=== PATIENT | female | born 1990 | race Caucasian/White ===

== ENCOUNTER 2022-03-06 16:55 | Emergency (ER) | payer BC, SELFPAY ==
[2022-03-06 17:02] VITALS: BP 109/68; PULSE 113; RESP 16; TEMP 37.2; O2SAT 98
--- NOTE | 2022-03-06 18:38 | ED.URI ---
HPI - URI/Sore Throat General Chief Complaint: Upper Respiratory Infection Stated Complaint: sore throat x 2 weeks Time Seen by Provider: 03/06/22 17:56 History of Present Illness HPI Narrative: Patient is a 31-year-old female here for evaluation of sinus congestion/rhinorrhea for the past 2 weeks. Patient states she had an initial improvement in her congestion, but her symptoms returned and worsened about 3 days ago. Her sinus drainage is green, and for the past 3 days she additional notes intermittent fevers, diffuse body aches, sore throat. Has been using Tylenol and adbb-zur-yoldfsc sinus spray with transient relief of her symptoms. Negative COVID test at home 3 days ago. She is vaccinated against COVID but not flu. Has a child at home that attends daycare, although the child is not symptomatic. She additionally reporting urinary frequency and urgency, but no dysuria or hematuria. Does endorse some back pain, not localized to one side, and states that it is mostly diffuse body aches that she has been troubled by. Denies trismus, syncope, headache, visual changes. Related Data Allergies Allergy/AdvReac Type Severity Reaction Status Date / Time cefaclor [From [facility]] AdvReac Hives Verified 03/06/22 17:54 sulfamethoxazole AdvReac Hives Verified 03/06/22 17:55 [From Septra] trimethoprim [From Septra] AdvReac Hives Verified 03/06/22 17:55 Review of Systems Review of Systems: Gen.: Reports fevers, chills, body aches. Eyes: Denies eye pain or visual change ENT: Reports congestion sore throat and rhinorrhea. Respiratory: Denies shortness of breath or cough CV: Denies chest pain or palpitations GI: Denies abdominal pain nausea, emesis or diarrhea : Reports urinary frequency. Denies burning, urgency,or hematuria Musculoskeletal: Denies back pain or muscle pain Neuro: Denies numbness, tingling, weakness or focal weakness Skin: Denies rash Except as documented, all other systems reviewed and negative All systems reviewed & are unremarkable except as noted in HPI and below Exam Narrative: APPEARANCE: Well appearing, no pain in distress, well-nourished. Head: Sinus tenderness over the maxillary area. Normocephalic and atraumatic. EYES: PERRLA/EOMI, conjunctivae clear NOSE: Purulent nasal drainage. EARS: External ear normal in appearance. TMs clear bilaterally THROAT: Tonsils are 2+ bilaterally and injected. No uvular deviation or LOCKS TENDER visualized. No tonsillar exudates. No trismus. NECK: Supple. Tender, mobile anterior cervical lymphadenopathy on the right. RESPIRATORY: Airway patent, respirations nonlabored. Clear to auscultation bilaterally, no rales, rhonchi, wheezing. CARDIOVASCULAR: Regular rate and rhythm without murmurs, rubs, or gallops. ABDOMINAL: Normoactive bowel sounds. Soft, nontender, nondistended. No rebound tenderness or guarding. MUSCULOSKELETAL: No CVA tenderness. Extremities are warm and well-perfused. Moves all extremities well. No edema. NEURO: Normal speech. No focal neurologic deficits. SKIN: Skin is warm and dry. No rashes. PSYCHIATRIC: Normal affect/mood. Course Vital Signs Vital signs: Vital Signs Temperature 98.9 F 03/06/22 17:02 Pulse Rate 113 H 03/06/22 17:02 Respiratory Rate 16 03/06/22 17:02 Blood Pressure 109/68 03/06/22 17:02 Pulse Oximetry 98 03/06/22 17:02 Temperature 98.8 F 03/06/22 20:34 Pulse Rate 84 03/06/22 20:34 Respiratory Rate 16 03/06/22 20:34 Blood Pressure 109/68 03/06/22 17:02 Pulse Oximetry 98 03/06/22 20:34 MDM - URI/Sore Throat MDM Narrative Medical decision making narrative: 31-year-old female here with sinus congestion and rhinorrhea in addition to fevers and body aches. Additionally complaining of urinary symptoms. Afebrile here, posterior oropharynx is injected and patient has maxillary sinus tenderness on exam. Strep test positive, UA suspicious for UTI. COVID/flu negative. Will cover with Augmentin for suspected sinusitis
[2022-03-06 19:24] LABS: Add Urine Microscopic? YES; Appearance Urine Cloudy (Clear); Bilirubin Urine Negative (Negative); Blood Urine 1+ (Negative); Color Urine Yellow (Yellow); Glucose Urine UA Negative (Negative); Ketones Urine Negative (Negative); Leukocyte Esterase Ur 2+ LEU/UL (Negative); Nitrate Urine Negative (Negative); Protein Urine Negative (Negative); Specific Grav Ur 1.012 (1.001-1.035); Squamous Epithelial Cell Urine Many /hpf (Few); Urobilinogen Urine Negative mg/dL (<2.0)
[2022-03-06 20:06] LABS: Influenza A QL RT-PCR Negative (Negative); Influenza B QL RT-PCR Negative (Negative); SARS-CoV-2 RNA PCR Negative
[2022-03-06] MEDS: ACETAMINOPHEN 325 MG TABLET 650 MG PO (20:30)
[2022-03-06] MEDS: IBUPROFEN 600 MG TABLET PO (20:30)
[2022-03-06] MEDS: AMOXICILLIN/CLAVULANATE K 875-125 MG TAB 1 TABLET PO (20:31)
[2022-03-06 20:34] VITALS: PULSE 84; RESP 16; TEMP 37.1; O2SAT 98
== END 2022-03-06 20:35 | disposition home or self-care (01) ==
PROVIDERS: Physician Assistant; Emergency Provider Emergency Medicine
DX: J32.9 Chronic sinusitis, unspecified (principal); N39.0 Urinary tract infection, site not specified; J02.0 Streptococcal pharyngitis; Z20.822 Contact with and (suspected) exposure to COVID-19
CPT/HCPCS: 81001; 87502; 87880; 99283; A9270; C9803; U0003; U0005

== ENCOUNTER 2022-06-21 19:10 | Emergency (ER) | payer BC, SELFPAY ==
[2022-06-21 19:23] VITALS: BP 108/69; PULSE 80; RESP 18; TEMP 36.6; O2SAT 99
--- NOTE | 2022-06-21 19:37 | ED.SKABFB ---
HPI - Skin/Abscess/Foreign Bdy General Chief complaint: Skin/Abscess/Foreign Body Stated complaint: rash Time Seen by Provider: 06/21/22 19:31 Source: patient Mode of arrival: ambulatory Limitations: no limitations History of Present Illness HPI narrative: Patient presents today complaining of 5-day history of rash to her trunk that is pruritic. She has been taking Zyrtec and applying hydrocortisone and calamine lotion without much relief. She denies any household changes, new foods or animal exposures, plant exposures, new medications. The day before her onset of symptoms, she did try on her wedding dress for the first time. Denies any shortness of breath, facial swelling, difficulty swallowing. Related Data Home Medications Medication Instructions Recorded Confirmed escitalopram oxalate 10 mg tablet 10 mg PO DAILY 03/18/22 06/21/22 (Lexapro) Allergies Allergy/AdvReac Type Severity Reaction Status Date / Time cefaclor [From Ceclor] AdvReac Hives Verified 06/21/22 19:31 sulfamethoxazole AdvReac Hives Verified 06/21/22 19:31 [From Septra] trimethoprim [From Septra] AdvReac Hives Verified 06/21/22 19:31 Review of Systems Review of Systems: CONSTITUTIONAL: Denies body aches, fever, chills, or sweats. EYES: Denies visual changes, redness, or discharge. ENT: Denies rhinorrhea, congestion, sore throat, or otalgia. CARDIOVASCULAR: Denies chest pain, palpitations, or edema. RESPIRATORY: Denies cough or dyspnea. GASTROINTESTINAL: Denies abdominal pain, nausea, vomiting, or diarrhea. GENITOURINARY: Denies dysuria or hematuria. SKIN: + Pruritic rash MUSCULOSKELETAL: Denies back pain, joint pain, or myalgia. NEUROLOGIC: Denies headache, numbness, tingling, or weakness. PSYCH: Denies depression or anxiety. 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 Please see nursing chart for further information. There is no relevant family history pertinent to the presenting complaint Exam Narrative: GENERAL: Well-appearing, well-nourished, and in no acute distress. HEAD: Normocephalic, atraumatic. EYES: EOMI. No redness or drainage. Conjunctivae normal. ENT: Mucous membranes pink and moist. NECK: Normal AROM. CHEST: No respiratory distress. EXTREMITIES: Erythematous maculopapular rash spread across the right abdomen, right flank, left flank and large patches. Large patch to the midline mid back as well, and left antecubital fossa. No drainage or induration. SKIN: Warm, dry, no rash. Capillary refill normal. Normal skin turgor. NEURO: No focal deficits. Alert and oriented x3. Gait steady. PSYCH: Normal affect. No signs of depression or anxiety. Course Course Level of Care: Express Care Visit Vital Signs Vital signs: Vital Signs Temperature 97.8 F 06/21/22 19:23 Pulse Rate 80 06/21/22 19:23 Respiratory Rate 18 06/21/22 19:23 Blood Pressure 108/69 06/21/22 19:23 Pulse Oximetry 99 06/21/22 19:23 Oxygen Delivery Room Air 06/21/22 19:23 Temperature 97.8 F 06/21/22 19:23 Pulse Rate 80 06/21/22 19:23 Respiratory Rate 18 06/21/22 19:23 Blood Pressure 108/
== END 2022-06-21 19:47 | disposition home or self-care (01) ==
PROVIDERS: Emergency Provider Nurse Practitioner
DX: L25.9 Unspecified contact dermatitis, unspecified cause (principal); Z87.820 Personal history of traumatic brain injury; Z96.21 Cochlear implant status
CPT/HCPCS: 99213; G0463

== ENCOUNTER 2022-10-06 16:17 | Emergency (ER) | payer BC, SELFPAY ==
--- NOTE | 2022-10-06 16:24 | ED.URI ---
HPI - URI/Sore Throat General Chief Complaint: Upper Respiratory Infection Stated Complaint: cough,sneezing Time Seen by Provider: 10/06/22 16:24 Source: patient Mode of arrival: ambulatory Limitations: no limitations History of Present Illness HPI Narrative: Tyler is a 32-year-old female patient presenting to the clinic today with complaints of sneezing, sinus pressure, sinus congestion, and coughing x4 weeks. She reports no known fever or chills. No known exposure to anybody with COVID, flu, or strep MD elicited complaint: cough and nasal congestion Related Data Home Medications Medication Instructions Recorded Confirmed escitalopram oxalate 10 mg tablet 10 mg PO DAILY 03/18/22 06/21/22 (Lexapro) norethindrone 1 mg-ethinyl tablet 10/06/22 10/06/22 estradiol 20 mcg (21)-iron 75 mg (7) tablet (Blisovi Fe 11/26 (28)) Allergies Allergy/AdvReac Type Severity Reaction Status Date / Time cefaclor [From [facility]] AdvReac Hives Verified 06/21/22 19:31 sulfamethoxazole AdvReac Hives Verified 06/21/22 19:31 [From Septra] trimethoprim [From Julra] AdvReac Hives Verified 06/21/22 19:31 Review of Systems Review of Systems: Pertinent positives per HPI. Patient denies any fever, chills, rash,visual changes, dizziness, sore throat, shortness of breath, chest pain, palpitations, nausea, vomiting, diarrhea, constipation, abdominal pain, or any urinary issues. 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 There is no relevant family history pertinent to the patient complaint. Exam Narrative: General: Well-developed, well nourished, in no apparent distress Head: Normocephalic, atraumatic Eyes: Pupils equally round and reactive to light bilaterally, EOM intact, sclera and conjunctive clear, no discharge, lids normal Ears: TMs intact and clear, ear canals clear, no drainage, grossly hearing normal. Nose: Nares patent, clear discharge, severe inflammation, right ethmoid and frontal sinus tenderness. Mouth: Oral pharynx without lesions or masses, good dentition, MMM. postnasal drip Neck: Supple, trachea midline, no enlargement of anterior or posterior cervical nodes, no thyroid masses or goiter palpable. Cardio: Regular rate and rhythm, s1 and s2 normal, no murmur appreciated. Resp: Clear to auscultation bilaterally, no rhonchi, rales, wheezing or rubs Course Course Emergency Course: Portions of this record may have been created with voice recognition software. Level of Care: Express Care Visit Vital Signs Vital signs: Vital Signs Temperature 36.3 C L 10/06/22 16:29 Pulse Rate 90 10/06/22 16:29 Respiratory Rate 18 10/06/22 16:29 Blood Pressure 110/70 10/06/22 16:29 Pulse Oximetry 100 10/06/22 16:29 Oxygen Delivery Room Air 10/06/22 16:29 Temperature 36.3 C L 10/06/22 16:29 Pulse Rate 90 10/06/22 16:29 Respiratory Rate 18 10/06/22 16:29 Blood Pressure 110/70 10/06/22 16:29 Pulse Oximetry 100 10/06/22 16:29 Oxygen Delivery Room Air 10/06/22 16:29 Vital signs reviewed MDM - URI/Sore Throat MDM Narrative Medical decision making narrative: At the
[2022-10-06 16:29] VITALS: BP 110/70; PULSE 90; RESP 18; TEMP 36.3; O2SAT 100
== END 2022-10-06 16:43 | disposition home or self-care (01) ==
PROVIDERS: Emergency Provider Nurse Practitioner Family
DX: J01.90 Acute sinusitis, unspecified (principal); Z86.73 Personal history of transient ischemic attack (TIA), and cerebral infarction without residual deficits; Z96.21 Cochlear implant status
CPT/HCPCS: 99213; G0463

== ENCOUNTER 2024-12-24 18:58 | Emergency (ER) | payer OTHER, SELFPAY ==
--- OUTSIDE RECORDS SUMMARY | 2024-12-24 19:02 | XMS_ITS | Continuity of Care Document ---
Author Organization [facility] Address [address] [place] [address] Phone Care Team Providers Care Can Dryer Name Role Phone Quan Fernandez MD Unavailable Unavailable Allergies, Adverse Reactions, Alerts Substance Reaction Status Criticality trimethoprim Active No Information sulfamethoxazole Active No Informat ion cefaclor Active No Information Medications Medication Instructions Dosage Effective Dates (start - stop) Status Comments meloxicam 15 mg tablet take 1 tablet by oral route every day 15 MG - Active tizanidine 4 mg tablet take 1 tablet by oral route every 8 hours as needed not to exceed 3 doses in 24 hours - Active ORTHO TRI-CYCLEN (unknown strength) Not Available - Active WAL-ITIN (unknown strength) Not Available - Active SPIRONOLACTONE (unknown strength) Not Available - Active COLACE (unknown strength) Not Available - Active Procedures Procedure Date OFFICE/OUTPATIENT VISIT NEW OFFICE CONSULTATION OFFICE/OUTPATIENT VISIT NEW Advance Directives Directive Yes / No Effective Date File Name No Information Encounters Encounter Description Practice Location Reason(s) For Visit Diagnoses Date Provider Providers Copied on Encounter OFFICE/OUTPAT IENT VISIT [facility], [address], [place], [address], tel:[phone] [facility] Other idiopathic scoliosis, cervical region 6 Jim Glass. [address] [place], [place], [id number] . tel:[phone] Referring Provider: Marcellus Lowe, [address], [place], [address] . tel:[phone] OFFICE CONSULTATION [facility], [address], [place], [address], tel:[phone] [facility] [place] back and rib pain (chief complaint) Bilateral low back pain without sciaticaBilate ral thoracic back painAdolescent idiopathic scoliosis of thoracolumbar region 6 Mynor Germain. [address], [place], [place], [id number] . tel:[phone] OFFICE/OUTPAT IENT VISIT [facility], [address], [place], [address], tel:[phone] [facility] [place] R SHOULDER PAIN (chief complaint) FELL DOWN STEPS 11/02/14 (chief complaint) PAIN AND PINCHING IN SHOULDER (chief complaint) Bursitis of shoulder 5 Angelique Wang. [address], [place], [place], [id number] . tel: [phone] Family History Family Member Type Diagnosis Age At Onset Mother Problem (finding) Alive and well Payers Payer name Insurance type Covered democrat ID Authorandresa saul(s) Medicare E2 OT [id number] Blue Access Choice PPO E2 OT [id number] Social History Type Description Quantity Date Captured Comments Alcohol Use Details Unknown Caffeine Use Details Unknown Tobacco Use Status Never smoked tobacco 2015 Smoking Status Never smoker Non-Smoking Tobacco Use Details : No Details Available : No Details Available Sex Female Vital Signs Date / Time: Height Weight BMI Pulse Rate Blood Pressure Temperature Respiratory Rate Body Surface Area Head Circumference Head Circ. Percentile Wt./Reg. Percentile BMI percentile Pulse Ox Inhaled Ox 7:59 AM 61.00 in 56.699 kg (125.00 lbs) 23.6 2 kg/m eter (2) 102/77 mm[Hg] Chief Complaint And Reason For Visit No Information Reason For Referral Reason For Referral No Information Plan Of Treatment Date Type Action Status Referral Ordered: MRI SPI CANAL&CNTS CRV C-MATRL ordered Referral Ordered: MRI SPI CANAL&CNTS LMBR C-MATRL Appointment date/timeframe: 11/26/2015 ordered Referral Ordered: X-RAY EXAM ENTIRE SPI 2/3 VW ordered Referral Ordered: MRI SPI CANAL&CNTS THRC C-MATRL Appointment date/timeframe: 11/26/2015 ordered Referral Ordered: RADEX YANDY COMPL MINIMUM 2 VIEWS RT ordered History Of Present Illness Encounter Date Complaint History Of Prese nt Illness back and rib pain R SHOULDER PAIN FELL DOWN STEPS 11/02/14 PAIN AND PINCHING IN SHOULDER Functional Status Date Functional Assessmen t No Information Instructions Date Instruction Additional Infor mation Activity as tolerated. Related t o Bilateral low back pain without sciatica Avoid prolonged bed rest. Relate d to Bilateral low back pain without sciatica Assessments Type Assessment Date assessment Other idiopathic scoliosis, cerv ical region Patient Care Teams Name Effective Dates (start - stop) Status Members No Information
--- OUTSIDE RECORDS SUMMARY | 2024-12-24 19:05 | XMS_ITS | Continuity of Care Document ---
Author Organization [facility] Address [address] [place] [address] Phone Care Team Providers Care Manager Data Name Role Phone Quan Fernandez MD Unavailable [...] Providers Copied on Encounter OFFICE/OUTPAT IENT VISIT [facility], [address] [facility] [address], [place], [address], tel:[phone] [facility] Other idiopathic scoliosis, cervical region 6 Jim Glass. [address] [place], [place], [id number] . tel:[phone] Referring Provider: Marcellus Lowe, [address] [facility] [address] [facility] [address], [place], [address] . tel:[phone] OFFICE CONSULTATION [facility], [address], [place], [address], tel:[phone] [facility] [place] back and rib pain (chief complaint) Bilateral low back pain without sciaticaBilate ral thoracic back painAdolescent idiopathic scoliosis of thoracolumbar region 6 Mynor Germain. [address], [place], [place], [id number] . tel:[phone] OFFICE/OUTPAT IENT VISIT [facility], [address], [place], [address], tel:[phone] [facility] [place] R SHOULDER PAIN (chief complaint) FELL DOWN STEPS 11/02/14 (chief complaint) PAIN AND PINCHING IN SHOULDER (chief complaint) Bursitis of shoulder 5 Angelique Wang. [address], [place], [place], [address] . tel: [phone] Family History Family Member Type Diagnosis Age At Onset Mother Problem (finding) Alive and well Payers Payer name Insurance type Covered republican ID Authorandresa saul(s) Medicare E2 OT [id number] Blue Access Choice PPO E2 OT [id number] Social History Type Description Quantity Date Captured [...]
[2024-12-24 19:28] VITALS: BP 111/69; PULSE 93; RESP 20; TEMP 37.1; O2SAT 100
--- NOTE | 2024-12-24 19:39 | ED_ITS ---
HPI - URI/Sore Throat General Chief Complaint: Upper Respiratory Infection Stated Complaint: coughing/sob Time Seen by Provider: 12/24/24 19:39 Source: patient Mode of arrival: ambulatory Limitations: no limitations History of Present Illness HPI Narrative: 34-year-old female presented for complaint of cough for 5 weeks. She states she was treated by her OBGYN for influenza and bronchitis, completing Ta miflu and azithromycin 3 weeks ago. States the cough has persisted and now she feels sob with exertion and ?fluid in the left lung. ? Also reports pain to the left chest and left upper back, worse with coughing and deep breaths. Denies nausea, vomiting, diarrhea or lethargy. Not taking anything for symptoms. Pt is 11 weeks gestation. Related Data Home Medications ?Medication ?Instructions ?Recorded ?Confirmed ?Last Taken ?Type escitalopram oxalate 10 mg tablet 10 mg PO DAILY 03/18/22 10/06/22 Unknown History (Lexapro) norethindrone 1 mg-ethinyl 1 tablet DIRECTED 10/06/22 10/06/22 Unknown History estradiol 20 mcg (21)-iron 75 mg (7) tablet (Blisovi Fe 11/26 (28)) Allergies Allergy/AdvReac Type Severity Reaction Status Date / Time cefaclor (From Ceclor) AdvReac Hives Verified 12/24/24 19:31 sulfamethoxazole (From AdvReac Hives Verified 12/24/24 19:31 Septra) trimethoprim (From Septra) AdvReac Hives Verified 12/24/24 19:31 Review of Systems Review of Systems: ROS per HPI All systems reviewed & are unremarkable except as noted in HPI and below PMFSH Past Medical History Medical History delivery delivered Deafness in left ear H/O nephrolithotomy with removal of calculi History of double vision Stroke Traumatic brain injury Surgical History Surgical History H/O craniotomy History of cochlear implant Social History Social History Smoking status: Never smoker Alcohol intake: never Substance use: never Living arrangements: with family Occupation/Education: occupation 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 Please see nursing chart for further information. There is no relevant family history pertinent to the presenting complaint Exam Narrative: GENERAL: Well-appearing, in no acute distress. EYES: EOMI. No redness or drainage. Conjunctivae normal. ENT: Mucous membranes pink and moist. No rhinorrhea. TMs normal bilaterally. Throat normal. Uvula midline. CHEST: No respiratory distress. scattered wheezing to all estrada. HEART: Regular rate and rhythm. No murmur appreciated. ABDOMEN: Soft, nontender, nondistended, normal active bowel sounds. SKIN: Warm, dry, no rash. Capillary refill normal. Normal skin turgor. NEURO: Alert and oriented x3. Gait steady. PSYCH: Normal affect. Course Course Emergency Course: Patient is aware of diagnosis, understands and agrees to treatment plan. Anticipatory guidance given. Patient agrees to follow-up as directed and is aware of reasons to seek care at the emergency department. Portions of this record may have been created with voice recognition software Level of Care: Express Care Visit Vital Signs Vital signs: Vital Signs Temperature 98.8 F 12/24/24 19:28 Pulse Rate 93 12/24/24 19:28 Respiratory Rate 20 12/24/24 19:28 Blood Pressure 111/69 12/24/24 19:28 Pulse Oximetry 100 12/24/24 19:28 Oxygen Delivery Room Air 12/24/24 19:28 Temperature 98.8 F 12/24/24 19:28 Pulse Rate 93 12/24/24 19:28 Respiratory Rate 20 12/24/24 19:28 Blood Pressure 111/69 12/24/24 19:28 Pulse Oximetry 100 12/24/24 19:28 Oxygen Delivery Room Air 12/24/24 19:28 MDM - URI/Sore Throat MDM Narrative Medical decision making narrative: Discussed physical exam findings, will send Rx for Augmentin and albuterol inhaler. Discussed risk/benefit of steroids and CXR during , advised to start the meds and f/u with obgyn. Advised supportive measures and signs/symptoms to go to the ER. Pt is appropriate for outpt treatment and f/u. Differential Diagnosis Differential diagnosis: Likely upper respiratory infection, otitis media, sinusitis, viral infection, bronchitis, pharyngitis and other (pneumonia) Discharge Plan Discharge Clinical Impression: Acute lower respiratory infection Patient Disposition: Home, Self-Care Condition: Stable Instructions: Antibiotic Form, Pneumonia (ED) Additional Instructions: Pneumonia is a lung infection that can cause a fever, cough, and trouble breathing. How it spreads: When someone with bacterial pneumonia coughs, sneezes, or talks, they release respiratory droplets into the air that can be inhaled by others.?You can also get pneumonia by touching a contaminated surface or object and then touching your mouth or nose. You're generally contagious for around 48 hours after starting antibiotics and your fever goes away.? Take antibiotics as directed until complete. eat small frequent meals. Get lots of rest and drink fluids. Review the list of approved medications during and talk to your OBGyn before starting any medications. Alternate Tylenol for pain/fever [id number] cough medication can cause drowsiness, take according to package directions If you have nasal congestion, you can take Zyrtec, or Claritin along with Flonase spray Call your Primary Care Doctor and Obgyn and make a follow-up appointment in 3 days. Go to the ER for worsening symptoms or concerns Patient Language: Mongolian Prescriptions: New albuterol sulfate 90 mcg/actuation HFA aerosol inhaler 2 inh inhalation QID PRN (Reason: shortness of breath or wheezing) Qty: 8.5 0RF amoxicillin-pot clavulanate 875-125 mg tablet 1 tablet PO Q12H 7 Days Qty: 14 0RF No Action norethindrone-e.estradiol-iron [Blisovi Fe 11/26 ()] 1 mg-20 mcg (21)/75 mg (7) tablet 1 tablet DIRECTED prednisone 20 mg tablet 40 mg PO DAILY 5 Days Qty: 10 0RF amoxicillin-pot clavulanate 875-125 mg tablet 1 tablet PO Q12H 10 Days Qty: 20 0RF escitalopram oxalate [Lexapro] 10 mg tablet 10 mg PO DAILY Follow-up/Referrals: PHYSICIAN,PLASTIC CARD GRADER CARDROOM [Primary Care Provider] -
== END 2024-12-24 19:50 | disposition home or self-care (01) ==
PROVIDERS: Emergency Provider Nurse Practitioner Family; Referring Provider Emergency Medicine
DX: O99.511 Diseases of the respiratory system complicating pregnancy, first trimester (principal); Z3A.11 11 weeks gestation of pregnancy; J22 Unspecified acute lower respiratory infection; Z86.73 Personal history of transient ischemic attack (TIA), and cerebral infarction without residual deficits
CPT/HCPCS: 99213; G0463

== ENCOUNTER 2025-06-15 16:36 | Outpatient (RCR) | payer OTHER, SELFPAY ==
[2025-06-15 16:41] VITALS: BP 110/70; PULSE 106
== END 2025-08-17 09:24 | disposition other institution (70) ==
LOC: ANHOBOP 16:36
PROVIDERS: Visit Provider Student in an Organized Health Care Education/Training Program
DX: O36.8130 Decreased fetal movements, third trimester, not applicable or unspecified (principal); Z3A.35 35 weeks gestation of pregnancy
CPT/HCPCS: 59025